=== PATIENT | female | born 1955 | race Caucasian/White ===

== ENCOUNTER 2020-04-06 08:13 | Emergency (ER) | payer MEDICARE, MEDICAID ==
--- NOTE | 2020-04-06 08:45 | EDM.PDOC ---
ED HPI GENERAL MEDICAL PROBLEM - General Chief Complaint: Upper Extremity Injury/Pain Stated Complaint: SMASHED LT INDEX FINGER Time Seen by Provider: 04/06/20 08:40 Source of Information: Reports: Patient, RN Notes Reviewed History Limitations: Reports: No Limitations - History of Present Illness INITIAL COMMENTS - FREE TEXT/NARRATIVE: 65-year-old female presents emergency department today with injury to her index finger on left hand she crushed the tailgate 1 month ago, she felt to be better to come to the emergency department after the swelling had gone down she does have an obvious deformity - Related Data Allergies Allergy/AdvReac Type Severity Reaction Status Date / Time Sulfa (Sulfonamide Allergy Itching Verified 04/06/20 08:29 Antibiotics) Home Meds: Home Meds Budesonide/Formoterol Fumarate [Symbicort 160-4.5 Mcg Inhaler] 2 inh INH BID 04/06/20 [History] Tiotropium [Spiriva HandiHaler] 2 inh INH DAILY 04/06/20 [History] Past Medical History Cardiovascular History: Reports: Heart Murmur Respiratory History: Reports: COPD Oncologic (Cancer) History: Reports: Lung - Past Surgical History Cardiovascular Surgical History: Reports: None Respiratory Surgical History: Reports: Other (See Below) Other Respiratory Surgeries/Procedures: MAC removal left lower lobe GI Surgical History: Reports: Cholecystectomy Female Surgical History: Reports: Hysterectomy Musculoskeletal Surgical History: Reports: Hip Replacement, Knee Replacement Social & Family History - Tobacco Use Tobacco Use Status *Q: Current Every Day Tobacco User Years of Tobacco use: 40 Packs/Tins Daily: 0.5 - Recreational Drug Use Recreational Drug Use: No Review of Systems - Review of Systems Review Of Systems: See Below Musculoskeletal: Reports: Hand Pain ED EXAM, GENERAL - Physical Exam Exam: See Below Free Text/Narrative:: Examination of the left hand she does have an obvious deformity over the PIP joint cannot fully extend her finger I do not appreciate any edema there is no erythema radial pulses +2 Course - Vital Signs Last Recorded V/S: Last Vital Signs Temp 97 F 04/06/20 08:27 Pulse 65 04/06/20 08:27 Resp 12 04/06/20 08:27 BP 138/78 04/06/20 08:27 Pulse Ox 99 04/06/20 08:27 Departure - Departure Time of Disposition: 09:35 Disposition: Home, Self-Care 01 Condition: Fair Clinical Impression: Phalanx, proximal fracture of finger Qualifiers: Encounter type: initial encounter Finger: index finger Fracture type: closed Fracture alignment: displaced Laterality: left Qualified Code(s): S62.611A - Displaced fracture of proximal phalanx of left index finger, initial encounter for closed fracture - Discharge Information Instructions: Finger Fracture, Adult, [id number] Referrals: PCP,None [Primary Care Provider] - Forms: ED Department Discharge Additional Instructions: Please follow-up with orthopedics clinic next week continue to use your splint for comfort as needed Sepsis Event Note (ED) - Evaluation Sepsis Screening Result: No Definite Risk - Focused Exam Vital Signs: Vital Signs Temp Pulse Resp BP Pulse Ox 04/06/20 08:27 97 F 65 12 138/78 99 - Assessment/Plan Plan: Assessment Acuity = acute Site and laterality = second phalanx fracture angulated compound closed Etiology = trauma Manifestations = deformity of digit #2 Location of injury = Home Lab values = x-ray describes a fracture above Plan She is set up for orthopedics consultation next week This note was dictated using [employer] voice recognition software please call with any questions on syntax or grammar.
--- NOTE | 2020-04-06 09:14 | CR ---
Fingers Second Digit Lt F1 CLINICAL HISTORY: Previous injury FINDINGS: There is a slightly annulated fracture at the base of the second proximal phalanx. Fracture line extends into the articular plane. IMPRESSION: Angled fracture base of second proximal phalanx with articular surface involvement
== END 2020-04-06 09:40 | disposition home or self-care (01) ==
LOC: JP.ED 08:13
DX: S62.611A Displaced fracture of proximal phalanx of left index finger, initial encounter for closed fracture (principal); J44.9 Chronic obstructive pulmonary disease, unspecified; F17.210 Nicotine dependence, cigarettes, uncomplicated; Z88.2 Allergy status to sulfonamides; Z79.899 Other long term (current) drug therapy; W23.0XXA Caught, crushed, jammed, or pinched between moving objects, initial encounter
CPT/HCPCS: 73140-26-F1; 73140-F1; 99283-25